=== PATIENT | female | born 1955 | race Caucasian/White ===

== ENCOUNTER 2016-11-29 00:56 | Inpatient (IN) | payer MEDICARE, OTHER ==
[~2016-11-29] VITALS: Ht 157.5 cm; Wt 46.5 kg
[~2016-11-29 00:56] MED LIST: ACID CONTROL150 MG PO; ASPIR 8181 MG PO; BUSPAR 10MG10 MG PO; CELEXA20 MG PO; CLINDAMYCIN HC300 MG PO; CLONAZEPAM1 MG PO; DULERA 100 MCG8.8 GM INH; EFFEXOR XR 3737.5 MG PO; EFFEXOR XR37.5 MG; HABITROL 21 MG P1 EA TOP; KLONOPIN TAB 00.5 MG PO; LASIX TAB 20 MG20 MG PO; LEVAQUIN750 MG PO; MEDROL DOSEPAK 24 MG PO; MEGACE TAB 40 M40 MG PO; NICOTINE PATCH1 EAC1 TP; NORVASC 5 MG TAB5 MG PO; OMNICEF 300 MG300 MG PO; PREDNISONE5 MG PO; PROVENTIL HFA 61 INH INH; SPIRONOLACTONE50 MG PO; SYNTHROID100 MCG PO; TESSALON PERLE100 MG PO; VENTOLIN/PROVE0.5 ML INH; WELLBUTRIN SR150 MG PO; ZESTRIL20 MG PO
[2016-11-29 01:36] LABS: HEMOGLOBIN 15.1 gm/dl (12.3-15.3); RED BLOOD COUNT 4.98 M/UL (4.00-5.10); WHITE BLOOD COUNT 11.4 K/UL (4.5-11.0)
[2016-11-29 02:06] LABS: BUN/CREATININE RATIO 30 (0-10)
[2016-11-29] MEDS ORDERED: OXYCODONE HCL5 MG PO (08:49)
[2016-11-29] MEDS ORDERED: COMBIVENT0.074 GM/I INH (08:51)
[2016-11-30 04:08] LABS: BUN/CREATININE RATIO 45 (0-10)
[2016-11-30 05:15] LABS: HEMOGLOBIN 12.4 gm/dl (12.3-15.3); RED BLOOD COUNT 4.12 M/UL (4.00-5.10)
[2016-12-01 07:40] LABS: BUN/CREATININE RATIO 21 (0-10)
[2016-12-03] MEDS ORDERED: PROMOD 946 ML BT1 EA PO (14:12)
[2016-12-03] MEDS ORDERED: ENSURE HIGH PR237 ML PO (14:14)
[2016-12-03] MEDS ORDERED: LANOXIN TAB0.125 MG PO (14:15)
[2016-12-03] MEDS ORDERED: LOPRESSOR 25 MG25 MG PO (14:18)
[2016-12-03] MEDS ORDERED: MEDROL DOSEPAK 24 MG PO (14:19)
[2016-12-03] MEDS ORDERED: THERAGRAN M TAB1 EA PO (14:22)
[2016-12-03] MEDS ORDERED: HABITROL 21 MG P1 EA TD (14:23)
[2016-12-03] MEDS ORDERED: ACCUPRIL10 MG PO (14:24)
[2016-12-03] MEDS ORDERED: SYMBICORT 16010.2 GM INH (14:33)
[2016-12-03] MEDS ORDERED: DIAMOX 250 MG250 MG PO (14:33)
== END 2016-12-03 15:54 | disposition home or self-care (01) | DRG 208 ==
LOC: ER1 00:56 → ZEROF 05:00 → CCU 05:00 → PROG CARE 12-01 16:38
PROVIDERS: Emergency Medicine; Hospitalist; Internal Medicine; ADMIT Internal Medicine
PROC: 5A1945Z Respiratory Ventilation, 24-96 Consecutive Hours (ICD-10-PCS; principal; 2016-11-29)
PROC: 3E0234Z Introduction of Serum, Toxoid and Vaccine into Muscle, Percutaneous Approach (ICD-10-PCS; 2016-12-03)
DX: J96.22 Acute and chronic respiratory failure with hypercapnia (principal); J44.1 Chronic obstructive pulmonary disease with (acute) exacerbation; E46 Unspecified protein-calorie malnutrition; Z68.1 Body mass index [BMI] 19.9 or less, adult; M51.36 Other intervertebral disc degeneration, lumbar region; R41.82 Altered mental status, unspecified; F41.9 Anxiety disorder, unspecified; F17.210 Nicotine dependence, cigarettes, uncomplicated; E03.9 Hypothyroidism, unspecified; I27.2 Other secondary pulmonary hypertension; Z79.52 Long term (current) use of systemic steroids; Z98.890 Other specified postprocedural states; Z90.710 Acquired absence of both cervix and uterus; Z90.49 Acquired absence of other specified parts of digestive tract; Z23 Encounter for immunization; Z88.0 Allergy status to penicillin; Z88.1 Allergy status to other antibiotic agents; Z82.49 Family history of ischemic heart disease and other diseases of the circulatory system; Z91.19 Patient's noncompliance with other medical treatment and regimen; I10 Essential (primary) hypertension; M54.2 Cervicalgia; G89.29 Other chronic pain; M62.50 Muscle wasting and atrophy, not elsewhere classified, unspecified site; Z51.89 Encounter for other specified aftercare; Z79.899 Other long term (current) drug therapy
CPT/HCPCS: ECHO; 31500; 36415; 36600; 71010; 80048; 80053; 81001; 82550; 82553; 82803; 83605; 83874; 83880; 84484; 85025; 85027; 87040; 87070; 87077; 87086; 87186; 87205; 93005; 93306; 94002; 94003; 94640; 94660; 94664; 96374; 96375; 99285; C9113; G0008; J0456; J1100; J1120; J1650; J1940; J2405; J2920; J7030; J7509; Q2039